=== PATIENT | male | born 1975 | race Caucasian/White ===

== ENCOUNTER 2020-07-14 12:10 | Inpatient (IN) | payer BC ==
--- NOTE | 2020-07-14 12:11 | HP ---
SUPERVISING PHYSICIAN: Zafar Warren M.D. CHIEF COMPLAINT: Elevated fever with [id number]. HISTORY OF PRESENT ILLNESS: This is a 45 year-old male patient who started feeling poorly about 2 weeks ago. He was actually diagnosed with COVID-19 on the 03 of July. Initially he did not have many symptoms but around July 06 he actually started having an elevated fever with headache. He also was very weak and had difficulty getting around. He then went to see Sarita Parrish NP on the and was given some antibiotics. He continued to progressively worsen and he had about 7 days of temperature that was above 101. It had actually gotten up as high as 104. He continually became weaker to the point that he came to see Dr. Go, his primary care physician. At that point he was very short of breath. He was sent to the hospital to have lab done and a chest x-ray. His chest x-ray showed patchy multifocal bilateral airspace disease. His labs showed a WBC of 7.5 with a hemoglobin of 15, hematocrit 42.5. He did have a left shift on differential of 83.2. His fibrinogen was 668 and his D-dimer was 532. Electrolytes were basically within normal limits. C reactive protein was 11.4, troponin less than 0.02. LD was 179. After Dr. Go saw him in his car in the parking lot, he looked to be moderately ill and felt that he would benefit from some IV fluids and some aggressive treatment in the hospital, and he called me for direct admission. He was admitted to the hospital. His initial temperature was 100.2 with a heart rate of 94, blood pressure 127/79, respiratory rate 16, O2 saturation 97%. He was given fluids and his condition was stable. PAST MEDICAL HISTORY: None. PAST SURGICAL HISTORY: 1. Left shoulder surgery. 2. Left knee surgery. OUTPATIENT MEDICATIONS: None. ALLERGIES: NO KNOWN DRUG ALLERGIES. SOCIAL HISTORY: He lives about [place] minutes from [place]. He is . He denies any tobacco, ETOH or illicit drug use. REVIEW OF SYSTEMS: GENERAL: Positive for fever and fatigue. Negative for weight changes. HEENT: Negative for sinus symptoms, ear pain, vision changes or sore throat. RESPIRATORY: Positive for shortness of breath. Negative for wheezing or coughing. CARDIAC: Negative for chest pain, palpitations or tachycardia. GASTROINTESTINAL: Positive for anorexia and poor oral intake. Negative for nausea, vomiting, diarrhea or constipation. GENITOURINARY: Negative for hematuria, dysuria or polyuria. SKIN: Negative for lesions or rashes. NEUROLOGIC: Positive for weakness and headaches. Negative for seizures. PHYSICAL EXAMINATION: VITAL SIGNS: Temperature 98.8, heart rate 94, blood pressure 117/79, respiratory rate 17, O2 saturation 96% on room air. GENERAL: This is a 45 year-old male patient who is lying in his hospital bed. He is in mild respiratory distress. HEENT: Normocephalic, atraumatic. Pupils are equal and reactive. Oropharynx is clear. Oral mucous membranes are dry. NECK: Supple without mass. RESPIRATORY: Somewhat diminished throughout but no wheezes or crackles noted. CHEST: There is equal rise and fall of the chest with inspiration and expiration. He does get slightly tachypneic with speaking. CARDIOVASCULAR: Regular rate and rhythm. GASTROINTESTINAL: Abdomen is soft, nondistended, nontender. Bowel sounds are positive. NEUROLOGIC: Awake, alert and oriented times three. Cranial nerves II-XII are grossly intact as tested. SKIN: Warm, dry and pink. LABORATORY: Labs and films are as per the History of Present Illness. ASSESSMENT: 1. COVID-19 pneumonitis. 2. Dehydration and fever secondary to #1. PLAN: The patient has been started on the pneumonia protocol. We will start him on azithromycin and Rocephin as well as Decadron and aggressive pulmonary hygiene. He will also be started on Eliquis as well as Remdesivir. I will do the COVID-19 lab work and will follow the trends. I have also ordered a CAT scan of his chest for tomorrow morning. #[id number] MTDD
[2020-07-14] MEDS ORDERED: AZITHROMYCIN IV 500 MG in SODIUM CHLORIDE 0.9% 250ML 250 ML IVPB ONE (12:41)
[2020-07-14] MEDS ORDERED: cefTRIAXone SODIUM 1 GM in SODIUM CHL 0.9% 50ML MIN-BAG+ 50 ML IVPB ONE (12:41)
[2020-07-14] MEDS ORDERED: SODIUM CHLORIDE 0.9% 1000ML 1,000 ML IVS ONE (12:49)
[2020-07-14] MEDS ORDERED: ONDANSETRON INJ 4 MG/2 ML VIAL IV PRN (12:50)
[2020-07-14] MEDS ORDERED: SODIUM CHLORIDE 0.9% (FLUSH) 10 ML SYG IV PRN (12:50)
[2020-07-14] MEDS ORDERED: ALBUTEROL INHALER 64 PUFF/8GM INH PRN (12:55)
[2020-07-14] MEDS ORDERED: REMDESIVIR 200 MG in SODIUM CHLORIDE 0.9% 250ML 250 ML IVPB ONE (13:00)
[2020-07-14] MEDS ORDERED: IV SET AND CAP CHANGE INJ INJ SCH (13:00)
[2020-07-14] MEDS ORDERED: DEXAMETHASONE INJ 4 MG/ML VIAL IV SCH (13:00)
[2020-07-14] MEDS ORDERED: DEXAMETHASONE INJ 10 MG/ML VIAL ONE (13:21)
[2020-07-14] MEDS ORDERED: SODIUM CHL 0.9% 50ML MIN-BAG+ 50 ML IVPB ONE (13:22)
[2020-07-14] MEDS ORDERED: SODIUM CHLORIDE 0.9% 250ML 0 ML ONE (13:22)
[2020-07-14] MEDS ORDERED: cefTRIAXone SODIUM 1 GM VIAL ONE (13:22)
[2020-07-14] MEDS ORDERED: ACETAMINOPHEN 325 MG TAB ONE (13:54)
[2020-07-14] MEDS: ACETAMINOPHEN 325 MG TAB PO PRN ×2 (14:00→23:25)
[2020-07-14] MEDS: ALBUTEROL INHALER 64 PUFF/8GM INH SCH ×2 (15:15→21:50)
[2020-07-14] MEDS ORDERED: SODIUM CHLORIDE 0.9% 250ML 250 ML ONE (17:04)
[2020-07-14] MEDS ORDERED: APIXABAN 5 MG TAB PO ONE (19:25)
[2020-07-14] MEDS: SODIUM CHLORIDE 0.45% 1000ML 1,000 ML IV PRN (20:04)
[2020-07-14] MEDS: APIXABAN 5 MG TAB PO SCH (20:40)
[2020-07-14] MEDS: SODIUM CHLORIDE 0.9% (FLUSH) 10 ML SYG IV SCH (20:40)
[2020-07-14] MEDS: TEMAZEPAM 15 MG CAP PO PRN (23:24)
[2020-07-15] MEDS: SODIUM CHLORIDE 0.45% 1000ML 1,000 ML IV PRN ×3 (05:45→20:36)
[2020-07-15] MEDS: PANTOPRAZOLE SODIUM IV 40 MG VIAL IV SCH (05:59)
--- NOTE | 2020-07-15 07:14 | CT ---
CT CHEST WITHOUT CONTRAST. CLINICAL HISTORY: covid COMPARISON: None. TECHNIQUE: Axial CT imaging of the chest performed. Reformatted coronal and sagittal images obtained. This exam was performed according to our departmental dose-optimization program which includes automated exposure control, adjustment of the mA and/or kV according to patient size and/or use of iterative reconstruction technique FINDINGS: HEART/VESSELS: Normal cardiac size. Unremarkable thoracic aorta. Normal caliber main pulmonary artery. MEDIASTINUM AND FRANK: Scattered nonenlarged mediastinal lymph nodes. Normal central airways. Normal esophagus. LUNGS/PLEURA: Multifocal curvilinear opacities within both lower lobes due to atelectasis. There are numerous scattered faint ill-defined ground glass opacities within the remaining lungs involving all lobes. There is no edema. No pneumothorax. There is no large volume effusion. CHEST WALL/SOFT TISSUES: Unremarkable thyroid. No adenopathy. Sternum is intact. Unremarkable thoracic spine. There is a remote right mid clavicle fracture. UPPER ABDOMEN: Unremarkable liver, gallbladder, pancreas, adrenal glands, superior pole of the kidneys. The spleen is enlarged at 13.9 cm. No perisplenic free fluid. IMPRESSION: 1. Scattered bilateral lower lobe curvilinear atelectasis. Multifocal groundglass opacities within the right and left lung compatible with pneumonitis. Viral disease is within the differential. 2. Splenomegaly. Electronically signed by: Gabby Garcia DO 07/15/2020 7:12 AM CDT
--- NOTE | 2020-07-15 07:31 | RAD ---
EXAM DESCRIPTION: X-ray single view chest. CLINICAL HISTORY: 45 years Male, covid COMPARISON: Chest x-ray performed on 07/14/[address] performed on 07/15/2020 TECHNIQUE: Single portable x-ray view of the chest performed on 07/15/2020 at 6:22 AM FINDINGS: The lungs are well-expanded. Again demonstrated are patchy interstitial and alveolar opacities predominantly involving the inferior hemithoraces concerning for multifocal pneumonia. The appearance is similar when compared to the prior studies. There is no evidence of a pneumothorax. The cardiac silhouette is normal in size and configuration. The mediastinal contours are normal. No acute osseous abnormality is identified. No focal soft tissue abnormalities are seen. Lines and tubes: None. IMPRESSION: No significant change when compared to the prior studies revealing patchy interstitial and alveolar opacities bilaterally predominantly involving the inferior hemithoraces concerning for multifocal pneumonia. Electronically signed by: Mouna Bailey DO 07/15/2020 7:29 AM CDT
[2020-07-15] MEDS ORDERED: DEXAMETHASONE INJ 10 MG/ML VIAL ONE (07:34)
[2020-07-15] MEDS ORDERED: SODIUM CHLORIDE 0.9% 250ML 250 ML ONE (07:34)
[2020-07-15] MEDS: cefTRIAXone SODIUM 1 GM in SODIUM CHL 0.9% 50ML MIN-BAG+ 50 ML IVPB SCH (07:50)
[2020-07-15] MEDS: DEXAMETHASONE INJ 10 MG/ML VIAL IV SCH (08:45)
[2020-07-15] MEDS: APIXABAN 5 MG TAB PO SCH ×2 (08:45→20:39)
[2020-07-15] MEDS: REMDESIVIR 100 MG in SODIUM CHLORIDE 0.9% 250ML 250 ML IVPB SCH (08:46)
[2020-07-15] MEDS: ALBUTEROL INHALER 64 PUFF/8GM INH SCH ×4 (09:00→21:00)
[2020-07-15] MEDS: ACETAMINOPHEN 325 MG TAB PO PRN (09:14)
[2020-07-15] MEDS: AZITHROMYCIN IV 500 MG in SODIUM CHLORIDE 0.9% 250ML 250 ML IVPB SCH (12:17)
[2020-07-15] MEDS: SODIUM CHLORIDE 0.9% (FLUSH) 10 ML SYG IV SCH ×2 (12:17→20:40)
[2020-07-15] MEDS ORDERED: IBUPROFEN 200 MG TAB PO PRN (18:50)
[2020-07-15] MEDS ORDERED: TEMAZEPAM 15 MG CAP ONE (20:14)
[2020-07-15] MEDS: TEMAZEPAM 15 MG CAP PO PRN (20:39)
[2020-07-15] MEDS: BIFIDOBACTERIUM INFANTIS 4 MG CAP PO SCH (20:39)
[2020-07-15] MEDS: guaiFENesin ER TAB 600 MG TAB PO SCH (20:40)
--- NOTE | 2020-07-15 21:47 | PN ---
SUPERVISING PHYSICIAN: Zafar Warren M.D. DATE: 07/15/20 SUBJECTIVE: The patient is sitting up in bed. He has just gone to the bathroom. He still has some shortness of breath with exertion but he feels much better. He is not eating a lot of food but he is taking fluids fairly well. He does still complain of a headache but it is fairly mild. He has no chest pain, nausea or vomiting. OBJECTIVE: VITAL SIGNS: Temperature 98.6, T max 24 hours is 99, heart rate 70, blood pressure 139/86, respiratory rate 19, O2 saturation 97% on room air. RESPIRATORY: Diminished throughout but no crackles or wheezing noted. CARDIAC: Regular rate and rhythm. NEUROLOGIC: He is awake, alert and oriented times three. LABORATORY: WBCs are 7,600, hemoglobin 14.4, hematocrit 40.3. He has a left shift on his differential. Fibrinogen is 745, D-dimer 359. Electrolytes are within normal limits with the exception of his calcium is slightly low at 8.3. LD is 183, C reactive protein 14.9. Preliminary blood cultures show no growth after 24 hours. RADIOLOGY: Chest x-ray shows no significant change when compared to prior studies, revealing patchy interstitial and alveolar opacities bilaterally predominantly involving the inferior hemothoraces concerning for multifocal pneumonia. CT of the chest shows: 1. Scattered bilateral lower lobe curvilinear atelectasis. Multifocal ground glass opacities within the right and left lung compatible with pneumonitis. Viral disease is within the differential. 2. Splenomegaly. All other labs and films have been reviewed via the EMR. ASSESSMENT: 1. COVID-19 pneumonitis. 2. Dehydration and fever secondary to #1. PLAN: We will continue present supportive care and follow the COVID-19 guidelines. Will continue on his antiviral and his antibiotics, and monitor his cultures as they become available. Will also follow his routine labs for COVID. I decreased his IV fluids to 100 mL per hour until he is taking p.o. more consistently. Routine labs will be ordered for in the morning. Will continue to monitor closely and follow as needed. #[id number] MTDD
[2020-07-16] MEDS: SODIUM CHLORIDE 0.45% 1000ML 1,000 ML IV PRN (04:33)
[2020-07-16] MEDS: PANTOPRAZOLE SODIUM IV 40 MG VIAL IV SCH (06:09)
[2020-07-16] MEDS: ALBUTEROL INHALER 64 PUFF/8GM INH SCH ×4 (08:00→21:00)
[2020-07-16] MEDS: cefTRIAXone SODIUM 1 GM in SODIUM CHL 0.9% 50ML MIN-BAG+ 50 ML IVPB SCH (08:28)
[2020-07-16] MEDS: BIFIDOBACTERIUM INFANTIS 4 MG CAP PO SCH ×2 (08:41→20:42)
[2020-07-16] MEDS: APIXABAN 5 MG TAB PO SCH ×2 (08:41→20:42)
[2020-07-16] MEDS: SODIUM CHLORIDE 0.9% (FLUSH) 10 ML SYG IV SCH ×2 (08:41→20:42)
[2020-07-16] MEDS: DEXAMETHASONE INJ 10 MG/ML VIAL IV SCH (08:41)
[2020-07-16] MEDS: guaiFENesin ER TAB 600 MG TAB PO SCH ×2 (08:54→20:42)
[2020-07-16] MEDS: AZITHROMYCIN IV 500 MG in SODIUM CHLORIDE 0.9% 250ML 250 ML IVPB SCH (09:27)
[2020-07-16] MEDS: REMDESIVIR 100 MG in SODIUM CHLORIDE 0.9% 250ML 250 ML IVPB SCH (11:36)
--- NOTE | 2020-07-16 14:50 | PN ---
SUPERVISING PHYSICIAN: Zafar Warren M.D. DATE: 07/16/20 SUBJECTIVE: The patient is sitting up in bed. He said today is the first day he has been more clear-headed and is actually feeling better. He still continues to get weak but he does not have shortness of breath like he had over the last 2 weeks. I discussed with his and the patient extensively by his lab work and vital signs and how he is improving but that it could still be a long process. He has had no temperature over the last 36 hours and his vital signs have been stable. OBJECTIVE: VITAL SIGNS: Temperature 98, heart rate 92, blood pressure 134/81, respiratory rate 17, O2 saturation 97% on room air. RESPIRATORY: Diminished at the bases but otherwise clear to auscultation bilaterally. CARDIAC: Regular rate and rhythm. NEUROLOGIC: He is awake, alert and oriented times three. LABORATORY: WBCs are 7, hemoglobin 14.6, hematocrit 41.3. There is no left shift on his differential. PTT is 28.8 with fibrinogen of 645 and a D-dimer of 320. Electrolytes are basically within normal limits. ALT 62, LD is 197. Troponin less than 0.02. C-reactive protein has improved to 7.6. Preliminary blood cultures show no growth after 48 hours. All other labs and films have been reviewed via the EMR. ASSESSMENT: 1. COVID-19 pneumonitis. 2. Dehydration and fever secondary to #1, improved. PLAN: We will continue present supportive care including ordering lab and chest x-ray in the morning. He is progressively improving, although I still think he should be watched clinically over the next 24 to 48 hours. I have encouraged good pulmonary hygiene and we will continue to monitor him closely and follow as needed. #[id number] [facility]
[2020-07-16] MEDS ORDERED: guaiFENesin ER TAB 600 MG TAB ONE (19:54)
[2020-07-16] MEDS ORDERED: BIFIDOBACTERIUM INFANTIS 4 MG CAP ONE (19:54)
[2020-07-16] MEDS: TEMAZEPAM 15 MG CAP PO PRN (22:20)
[2020-07-16] MEDS ORDERED: TEMAZEPAM 15 MG CAP ONE (22:20)
[2020-07-17] MEDS: PANTOPRAZOLE SODIUM IV 40 MG VIAL IV SCH (06:02)
[2020-07-17] MEDS ORDERED: SODIUM CHLORIDE 0.9% 250ML 250 ML ONE (07:01)
--- NOTE | 2020-07-17 07:36 | RAD ---
Study: Single Frontal Radiograph of the Chest. Indication:covid Comparison: July 15, 2020 Impression: Heart size normal. Persistent patchy consolidative changes in the bilateral lung bases and bilateral mid lungs concerning for pneumonia. This appears stable. Follow-up to resolution recommended. No pleural effusion or pneumothorax. No acute osseous abnormality. Electronically signed by: Ryan Jamison MD 07/17/2020 7:34 AM CDT
[2020-07-17] MEDS: cefTRIAXone SODIUM 1 GM in SODIUM CHL 0.9% 50ML MIN-BAG+ 50 ML IVPB SCH (07:47)
[2020-07-17] MEDS: ALBUTEROL INHALER 64 PUFF/8GM INH SCH ×2 (08:05→12:00)
[2020-07-17] MEDS ORDERED: guaiFENesin ER TAB 600 MG TAB ONE (08:15)
[2020-07-17] MEDS ORDERED: BIFIDOBACTERIUM INFANTIS 4 MG CAP ONE (08:15)
[2020-07-17] MEDS: REMDESIVIR 100 MG in SODIUM CHLORIDE 0.9% 250ML 250 ML IVPB SCH (08:25)
[2020-07-17] MEDS: BIFIDOBACTERIUM INFANTIS 4 MG CAP PO SCH (08:25)
[2020-07-17] MEDS: DEXAMETHASONE INJ 10 MG/ML VIAL IV SCH (08:25)
[2020-07-17] MEDS: APIXABAN 5 MG TAB PO SCH (08:26)
[2020-07-17] MEDS: SODIUM CHLORIDE 0.9% (FLUSH) 10 ML SYG IV SCH (08:26)
[2020-07-17] MEDS: guaiFENesin ER TAB 600 MG TAB PO SCH (08:26)
[2020-07-17] MEDS: AZITHROMYCIN IV 500 MG in SODIUM CHLORIDE 0.9% 250ML 250 ML IVPB SCH (10:48)
[2020-07-17 15:34] VITALS: BP 117/77; TEMP 97.8; O2SAT 98
--- NOTE | 2020-07-18 09:16 | DS ---
SUPERVISING PHYSICIAN: Nikolai Giron MD DISCHARGE DIAGNOSIS: 1. COVID-19 pneumonitis. 2. Dehydration and fever secondary to #1, resolved. HISTORY OF PRESENT ILLNESS: This is a 45-year-old male patient who started feeling poorly about 2 weeks prior to admission. He was actually diagnosed with COVID-19 on the 07/03/20. Initially, he did not have many symptoms but around 07/06/20, he actually started having an elevated fever with headache. He also progressively felt weaker. He went to see Sarita Parrish NP, on the 07/10/20 and was given some antibiotics. He continued to progressively worsen and for about 7 days had a temperature that was above 101. It had actually gotten up as high as 104. He became weaker to the point that he came to see Dr. Go, his primary care physician. At that point he was very short of breath. He was sent to the hospital to have lab done and a chest x-ray. His chest x-ray showed patchy multifocal bilateral airspace disease. His labs showed a WBC of 7.5 with a hemoglobin of 15, hematocrit 42.5. He did have a left shift on differential of 83.2. His fibrinogen was 668 and his D-dimer was 532. Electrolytes were basically within normal limits. C-reactive protein was 11.4, troponin less than 0.02. LD was 179. Dr. Go saw him in his car in the parking lot and he looked to be moderately ill as well as very short of breath and felt that he would benefit from some IV fluids and aggressive treatment in the hospital for COVID-19. He was directly admitted to the hospital. His initial temperature was 100.2 with a heart rate of 94, blood pressure 127/79, respiratory rate 16, O2 saturation 97%. He was given fluids and his condition was stabilized. HOSPITAL COURSE: The patient progressively improved over the next few days. He was given aggressive IV hydration and started on COVID-19 guidelines that included azithromycin, Rocephin and Decadron as well as aggressive pulmonary hygiene. He was also started on Eliquis as well as Remdesivir. At CT scan was ordered and was consistent with COVID-19. Over the next several days, his vital signs stabilized. His laboratory work progressed over the next several days. Today, he will be discharged home in stable condition. LABORATORY: WBCs remain stable at 7.3. H&H today is 14.2 and 40.7. Initially, he had a left shift on differential and today, his neutrophils are 55%. PTT was stable at 28.8 with initial fibrinogen of 668. It went up to 745 and today is 656. His initial D-dimer was 532. It progressively improved and today is 246. Sodium was stable at 137, potassium 4.4, chloride 100, carbon dioxide 27, BUN 19, creatinine 1.09. Calcium was initially 8.3 and today is 8.8. Ferritin was 552 and is now 931. ALT was 46 and today is 62. His other liver enzymes were within normal limits. LD was 197, C-reactive protein was initially 11.4, went as high as 14.9 and now is 5.6. Troponin 0.02. MICROBIOLOGY: Preliminary blood cultures show no growth after 3 days. RADIOLOGY: Chest CT on the date of admission showed 1) Scattered bilateral lower lobe curvilinear atelectasis, multifocal ground glass opacities within the right and left lung compatible with pneumonitis. Viral disease is within the differential. 2) Splenomegaly. His final chest x-ray showed heart size normal, persistent patchy consolidative changes in the bilateral lung bases and bilateral mid lungs concerning for pneumonia. This appears stable. Followup to resolution is recommended. No pleural effusion or pneumothorax. DISCHARGE PLAN: The patient will be discharged home in stable condition. He is to resume his previous diet and increase his activity as tolerated. He does not have any routine home medications, but Dr. Go had sent him some Eliquis and azithromycin prior to admission, so he has those at home and he is to continue those. In addition to those medications, he is to continue with Align while on antibiotics, cefdinir for 7 days, dexamethasone for 6 days, azithromycin for 4 days and Eliquis for 30 days. We have also sent him home with his albuterol inhaler that he used here in the hospital. He is to return to the hospital or followup with Dr. Go for any problems or complications. His followup appointment is 07/20/20 at 9:45 AM. That will be via Telehealth. DISCHARGE MEDICATIONS: 1. Align. 2. Cefdinir. 3. Decadron. 4. Eliquis. 5. Albuterol. 6. Azithromycin. #[id number] [facility]
== END 2020-07-17 16:25 | disposition home or self-care (01) | DRG 177 ==
LOC: MS 12:10
PROVIDERS: ADMIT Family Medicine; ATTEND Nurse Practitioner Acute Care
DX: U07.1 COVID-19 (principal); J12.89 Other viral pneumonia; E86.0 Dehydration

== ENCOUNTER → 2020-07-14 | Outpatient (CLI) | payer BC ==
--- NOTE | 2020-07-14 15:15 | RAD ---
EXAM DESCRIPTION: Chest,2 Views CLINICAL HISTORY: 45 years Male, CORONAVIRUS INFECTION COMPARISON: None. Findings: Two view(s)/radiograph(s) Cardiac silhouette and pulmonary vasculature are within normal limits. No pneumothorax. No pleural effusion. Patchy multifocal bilateral airspace disease. No acute osseous abnormality. IMPRESSION: Patchy multifocal bilateral airspace disease. Electronically signed by: Hernando Paz MD 07/14/2020 3:13 PM CDT
== END ==
LOC: LAB.O 08:49
PROVIDERS: ATTEND Family Medicine
DX: B34.2 Coronavirus infection, unspecified (principal); R09.02 Hypoxemia

== ENCOUNTER → 2020-07-26 | Outpatient (CLI) | payer BC | LOC: GMAM 11:19 | PROVIDERS: ATTEND Family Medicine | DX: U07.1 COVID-19 (principal); R09.02 Hypoxemia ==

== ENCOUNTER → 2020-07-27 | Outpatient (CLI) | payer BC | LOC: GMAM 14:39 | PROVIDERS: ATTEND Family Medicine | DX: Z12.5 Encounter for screening for malignant neoplasm of prostate (principal) ==

== ENCOUNTER → 2020-07-28 | Outpatient (CLI) | payer BC ==
--- NOTE | 2020-07-28 13:08 | US ---
EXAM DESCRIPTION: Abdomen,Limited: ULTRASOUND. CLINICAL HISTORY: ABNORMAL RESULTS OF LIVER FUNCTION COMPARISON: None. TECHNIQUE: Transabdominal scanning: tong-scale mode. Doppler mode. FINDINGS: Gallbladder: normal size, shape, echogenicity; no intraluminal stones or sludge. No fluid around the gallbladder. No wall thickening. 2.7 mm. Non-tender with transducer pressure. Common bile duct: caliber 5.1 mm within normal limits. Liver: Heterogeneously increased echogenicity; contour liver capsule smooth where seen. No fluid around the liver. Intrahepatic biliary ducts normal caliber. Doppler hepatopedal flow and normal caliber portal vein.. 13 mm. Long axis right lobe 14.8 cm. Pancreas: normal size and echogenicity. Duct not seen. Proximal abdominal aorta: 1.9 cm diameter normal caliber.. IVC: visualized and normal caliber. Right kidney: long axis measures 9.0 cm; volume 125.1 ml. Cortical echogenicity less than the liver.. 10 mm cortical thickness. No echogenic stones; no hydronephrosis. Spleen: Long axis is 11.2 cm. Normal vascularity and echogenicity. IMPRESSION: 1. Steatosis of the liver with normal size and smooth capsule. Normal portal vascularity. Pancreas is negative. 2. Right renal cortex is thinned but otherwise unremarkable kidney. Normal sonographic appearance of the spleen. 3. Gallbladder and common bile duct are negative. Electronically signed by: Andrey Francis MD 07/28/2020 1:06 PM CDT
== END ==
LOC: GMAM 11:19
PROVIDERS: ATTEND Family Medicine
DX: K76.0 Fatty (change of) liver, not elsewhere classified (principal); N28.9 Disorder of kidney and ureter, unspecified

== ENCOUNTER → 2020-07-29 | Outpatient (CLI) | payer BC | LOC: LAB.O 09:34 | PROVIDERS: ATTEND Family Medicine | DX: U07.1 COVID-19 (principal) ==

== ENCOUNTER → 2020-07-31 | Outpatient (CLI) | payer BC | LOC: GMAM 11:17 | PROVIDERS: ATTEND Family Medicine | DX: U07.1 COVID-19 (principal) ==

== ENCOUNTER → 2020-08-31 | Outpatient (CLI) | payer BC | LOC: GMAM 11:02 | PROVIDERS: ATTEND Family Medicine | DX: U07.1 COVID-19 (principal) ==